=== PATIENT | female | born 1950 | race Hispanic/Latino ===

== ENCOUNTER 2017-10-12 22:59 | Emergency (ER) | payer MEDICARE, OTHER ==
[~2017-10-12] VITALS: Ht 154.9 cm; Wt 68.5 kg
[2017-10-13] MEDS ORDERED: HYDROCODONE/APAP 5MG-325MG TAB PO ONE (00:15)
[2017-10-13 03:00] VITALS: BP 149/79
== END 2017-10-13 01:35 | disposition home or self-care (01) ==
LOC: FSED 22:59
DX: S82.61XA Displaced fracture of lateral malleolus of right fibula, initial encounter for closed fracture (principal); W10.8XXA Fall (on) (from) other stairs and steps, initial encounter; Y92.831 Amusement park as the place of occurrence of the external cause; Z88.0 Allergy status to penicillin
CPT/HCPCS: 99284